=== PATIENT | female | born 1995 | race Hispanic/Latino ===

== ENCOUNTER 2017-09-09 12:55 | Inpatient (IN) | payer MEDICAID ==
[~2017-09-09] VITALS: Ht 162.6 cm; Wt 106.1 kg
[2017-09-09] MEDS ORDERED: LACTATED RINGERS 1000ML 1,000 ML IV PRN (13:43)
[2017-09-09] MEDS ORDERED: OXYTOCIN-LR 20 UNITS/1000 ML 1,000 ML IV SCH (13:45)
[2017-09-09] MEDS ORDERED: DINOPROSTONE 10 MG VAGINAL SUPP VG SCH (13:45)
[2017-09-09 14:06] LABS: HEMATOCRIT 40.5 % (36-48); MEAN CORPUSCULAR HEMOGLOBIN 32.7 pg (27.0-33.0); MEAN CORPUSCULAR HGB CONC 33.9 g/dL (32.0-36.0); MEAN CORPUSCULAR VOLUME 96.3 fL (79-99); PLATELET COUNT (AUTO) 205 K/uL (130-400); RED CELL DISTRIBUTION WIDTH 13.4 % (11.0-15.5); WHITE BLOOD COUNT (AUTO) 13.8 K/uL (4.8-10.8)
[2017-09-09 14:12] LABS: APPEARANCE,URINE Clear (CLEAR); BILIRUBIN,URINE Negative (NEGATIVE); COLOR,URINE Yellow (YELLOW); GLUCOSE, URINE (UA) Negative (NEGATIVE); KETONES,URINE Negative (NEGATIVE); LEUKOCYTE ESTERASE ,URINE Large (NEGATIVE); NITRATE,URINE Positive (NEGATIVE); OCCULT BLOOD,URINE Trace (NEGATIVE); PROTEIN,URINE Negative (NEGATIVE); UROBILINOGEN,URINE 0.2 mg/dL (0.2-1.0)
[2017-09-09 14:29] LABS: BACTERIA,URINE Few /HPF (None Seen); SQUAMOUS EPITHELIAL CELL,UR Few /LPF (0-2)
[2017-09-09] MEDS: AMPICILLIN 2GM+NS 100ML 100 ML IV SCH (22:09)
[2017-09-10] MEDS ORDERED: OXYTOCIN 10 USP UNITS/ML 20 UNIT in LACTATED RINGERS 1000ML 1,000 ML IV SCH (01:00)
[2017-09-10] MEDS: AMPICILLIN 2GM+NS 100ML 100 ML IV SCH ×2 (03:25→21:40)
[2017-09-10] MEDS ORDERED: LACTATED RINGERS 1000ML 1,000 ML IV ONE (03:27)
[2017-09-10] MEDS ORDERED: OXYTOCIN 10 USP UNITS/ML ONE ×2 (03:27→16:17)
[2017-09-10] MEDS ORDERED: PROMETHAZINE HCL 25 MG/ML 1ML AMPULE IM SCH (07:57)
[2017-09-10] MEDS ORDERED: MEPERIDINE-PF 50 MG/ML SYG IVP SCH (07:57)
[2017-09-10] MEDS ORDERED: EPHEDRINE SULFATE 50 MG/ML AMPULE IVP PRN (09:45)
[2017-09-10] MEDS ORDERED: LACTATED RINGERS 500 ML 500 ML IV PRN (09:45)
[2017-09-10] MEDS ORDERED: NALOXONE HCL 0.4 MG/1 ML ML IV PRN (09:45)
[2017-09-10 10:25] LABS: HEPATITIS Bs ANTIGEN SCREEN P Negative (Negative)
[2017-09-10] MEDS ORDERED: EPHEDRINE-NS PF 50MG/5ML SYRINGE IV ONE (11:09)
[2017-09-10] MEDS ORDERED: LIDOCAINE HCL 1% 20 ML VIAL ONE (13:26)
[2017-09-10] MEDS ORDERED: MEASLES/MUMPS/RUBELLA VACCINE, LIVE 0.5 ML/VIAL SQ PRN (14:45)
[2017-09-10] MEDS ORDERED: ACETAMINOPHEN-CODEINE 300/30MG TAB PO PRN (14:45)
[2017-09-10] MEDS ORDERED: ACETAMINOPHEN 325 MG TAB PO PRN (14:45)
[2017-09-10] MEDS ORDERED: BENZOCAINE/LANOLIN/ALOE VERA 60 ML AEROSOL TP PRN (14:45)
[2017-09-10] MEDS ORDERED: DIPH,PERTUSS(ACELL),TET VAC/PF 0.5 ML VIAL IM PRN (14:45)
[2017-09-10] MEDS ORDERED: LANOLIN 30GM OINTMENT TP PRN (14:45)
[2017-09-10] MEDS ORDERED: WITCH HAZEL 1 PAD TP PRN (14:45)
[2017-09-10] MEDS: IBUPROFEN 800 MG TAB PO PRN (16:22)
[2017-09-10 20:00] VITALS: BP 112/59
[2017-09-10] MEDS: DOCUSATE SODIUM 100 MG CAP PO SCH (20:41)
[2017-09-10 21:50] VITALS: BP 102/60
[2017-09-10] MEDS ORDERED: PREN1TAB89 PO (21:59)
[2017-09-10] MEDS ORDERED: FLU VACC QS2017-18 36MOS UP/PF 60 MCG/0.5 ML ML IM ONE (22:30)
[2017-09-10 23:23] VITALS: BP 106/57
[2017-09-11] MEDS ORDERED: FLU VACC QS2017-18 36MOS UP/PF 60 MCG/0.5 ML ML IM ONE (00:06)
[2017-09-11 03:17] VITALS: BP 100/54
[2017-09-11] MEDS: AMPICILLIN 2GM+NS 100ML 100 ML IV SCH (03:32)
[2017-09-11] MEDS: IBUPROFEN 800 MG TAB PO PRN ×2 (03:32→14:11)
[2017-09-11 05:40] LABS: HEMATOCRIT 24.2 % (36-48); MEAN CORPUSCULAR HEMOGLOBIN 33.6 pg (27.0-33.0); MEAN CORPUSCULAR HGB CONC 35.1 g/dL (32.0-36.0); MEAN CORPUSCULAR VOLUME 95.7 fL (79-99); PLATELET COUNT (AUTO) 155 K/uL (130-400); RED BLOOD CELL COUNT(AUTO) 2.53 MIL/uL (4.00-5.50); RED CELL DISTRIBUTION WIDTH 13.3 % (11.0-15.5); WHITE BLOOD COUNT (AUTO) 17.6 K/uL (4.8-10.8)
[2017-09-11 07:54] VITALS: BP 113/66
[2017-09-11] MEDS: DOCUSATE SODIUM 100 MG CAP PO SCH (08:45)
[2017-09-11 11:17] VITALS: BP 117/65
[2017-09-11 15:36] VITALS: BP 108/65
[2017-09-11] MEDS ORDERED: FERS325 PO (16:45)
[2017-09-11] MEDS ORDERED: IBUP-2070 PO (16:45)
== END 2017-09-11 17:45 | disposition home or self-care (01) | DRG 560 ==
LOC: WSH 12:55 → LDH 12:55 → WSH 09-10 21:45
PROVIDERS: ADMIT Obstetrics & Gynecology; ATTEND Obstetrics & Gynecology
PROC: 10E0XZZ Delivery of Products of Conception, External Approach (ICD-10-PCS; principal; 2017-09-10)
PROC: 10907ZC Drainage of Amniotic Fluid, Therapeutic from Products of Conception, Via Natural or Artificial Opening (ICD-10-PCS; 2017-09-10)
PROC: 3E033VJ Introduction of Other Hormone into Peripheral Vein, Percutaneous Approach (ICD-10-PCS; 2017-09-10)
PROC: 3E0P7VZ Introduction of Hormone into Female Reproductive, Via Natural or Artificial Opening (ICD-10-PCS; 2017-09-10)
PROC: 0W8NXZZ Division of Female Perineum, External Approach (ICD-10-PCS; 2017-09-10)
PROC: 00HU33Z Insertion of Infusion Device into Spinal Canal, Percutaneous Approach (ICD-10-PCS; 2017-09-10)
PROC: 3E0R3BZ Introduction of Anesthetic Agent into Spinal Canal, Percutaneous Approach (ICD-10-PCS; 2017-09-10)
PROC: 3E0234Z Introduction of Serum, Toxoid and Vaccine into Muscle, Percutaneous Approach (ICD-10-PCS; 2017-09-10)
PROC: 3E0234Z Introduction of Serum, Toxoid and Vaccine into Muscle, Percutaneous Approach (ICD-10-PCS; 2017-09-11)
DX: O69.81X0 Labor and delivery complicated by cord around neck, without compression, not applicable or unspecified (principal); Z68.41 Body mass index [BMI] 40.0-44.9, adult; O34.219 Maternal care for unspecified type scar from previous cesarean delivery; D64.9 Anemia, unspecified; N85.8 Other specified noninflammatory disorders of uterus; R63.5 Abnormal weight gain; O75.89 Other specified complications of labor and delivery; O90.81 Anemia of the puerperium; Z37.0 Single live birth; Z3A.37 37 weeks gestation of pregnancy; Z23 Encounter for immunization
CPT/HCPCS: 36415; 76805; 81001; 85027; 86592; 86850; 86900; 86901; 87088; 87340; 90715; A4314; A4351; A4606; J0290; J2175; J2550; J2590; J3490; J7120; Q2038

== ENCOUNTER 2019-12-06 17:46 | Inpatient (IN) | payer MEDICAID ==
[~2019-12-06] VITALS: Ht 165.1 cm; Wt 118.8 kg
[~2019-12-06 17:46] MED LIST: FERS325 PO; IBUP-2070 PO; PREN1TAB89 PO
[2019-12-06 18:42] LABS: HEMATOCRIT 41.6 % (36-48); MEAN CORPUSCULAR HGB CONC 33.2 g/dL (32.0-36.0); MEAN CORPUSCULAR VOLUME 93.5 fL (79-99); PLATELET COUNT (AUTO) 215 K/uL (130-400); RED BLOOD CELL COUNT(AUTO) 4.45 MIL/uL (4.00-5.50); RED CELL DISTRIBUTION WIDTH 13.2 % (11.0-15.5); WHITE BLOOD COUNT (AUTO) 11.9 K/uL (4.8-10.8)
[2019-12-06 18:44] LABS: BILIRUBIN,URINE Negative (NEGATIVE); COLOR,URINE Yellow (YELLOW); GLUCOSE, URINE (UA) Negative (NEGATIVE); KETONES,URINE Negative (NEGATIVE); LEUKOCYTE ESTERASE ,URINE Negative (NEGATIVE); NITRATE,URINE Negative (NEGATIVE); OCCULT BLOOD,URINE Negative (NEGATIVE); PH,URINE 7.5 (5.0-8.0); PROTEIN,URINE Negative (NEGATIVE)
[2019-12-06 18:49] LABS: APPEARANCE,URINE SLIGHTLY CLOUDY (CLEAR)
[2019-12-06 18:56] LABS: RBC,URINE 0-1 /HPF (0-1); WBC,URINE 0-1 /HPF (0-1)
[2019-12-06 18:58] LABS: AMORPHOUS SEDIMENT,UR Few /LPF (None Seen); BACTERIA,URINE Few /HPF (None Seen); SQUAMOUS EPITHELIAL CELL,UR Few /HPF (0-2)
[2019-12-06] MEDS ORDERED: MISOPROSTOL 25 MCG TABLET VG SCH (19:55)
[2019-12-06 20:00] VITALS: BP 112/65
[2019-12-06] MEDS: LACTATED RINGERS 1000ML 1,000 ML IV PRN (20:15)
[2019-12-06] MEDS ORDERED: PREN1TAB80 PO (20:32)
[2019-12-07] VITALS (8 sets, daily range): BP systolic 94–125; BP diastolic 49–74
[2019-12-07] MEDS: LACTATED RINGERS 1000ML 1,000 ML IV PRN (01:26)
[2019-12-07] MEDS ORDERED: OXYTOCIN-LR 20 UNITS/1000 ML 1,000 ML IV ONE (03:57)
[2019-12-07] MEDS ORDERED: PROMETHAZINE HCL 25 MG/ML 1ML AMPULE IM SCH (09:15)
[2019-12-07] MEDS ORDERED: MEPERIDINE-PF 50 MG/ML SYG IVP SCH (09:15)
[2019-12-07] MEDS ORDERED: MEPERIDINE-PF 50 MG/ML SYG ONE (09:19)
[2019-12-07] MEDS ORDERED: LIDOCAINE HCL 1% 20 ML VIAL ONE (10:47)
[2019-12-07] MEDS ORDERED: WITCH HAZEL 1 PAD TP PRN (11:00)
[2019-12-07] MEDS ORDERED: MEASLES/MUMPS/RUBELLA VACCINE, LIVE 0.5 ML/VIAL SQ PRN (11:00)
[2019-12-07] MEDS ORDERED: BENZOCAINE/LANOLIN/ALOE VERA 60 ML AEROSOL TP PRN (11:00)
[2019-12-07] MEDS ORDERED: DIPH,PERTUSS(ACELL),TET VAC/PF 0.5 ML VIAL IM PRN (11:00)
[2019-12-07] MEDS ORDERED: ACETAMINOPHEN-CODEINE 300/30MG TAB PO PRN (11:00)
[2019-12-07] MEDS ORDERED: LANOLIN 30GM OINTMENT TP PRN (11:00)
--- NOTE | 2019-12-07 12:50 | NUR ---
QBL= 149G 2 HOURS . PERICARE GIVEN AT THIS TIME.
[2019-12-07] MEDS: IBUPROFEN 600 MG TABLET PO PRN (12:59)
[2019-12-07] MEDS: OXYTOCIN-LR 20 UNITS/1000 ML 1,000 ML IV SCH (14:54)
[2019-12-07] MEDS: ACETAMINOPHEN 325 MG TAB PO PRN (17:12)
[2019-12-07] MEDS ORDERED: FLU VACC QS2019-20 36MOS UP/PF 60 MCG/0.5 ML ML IM ONE (18:00)
[2019-12-07] MEDS: DOCUSATE SODIUM 100 MG CAP PO SCH (21:00)
[2019-12-08 03:35] VITALS: BP 102/51
[2019-12-08] MEDS: OXYTOCIN-LR 20 UNITS/1000 ML 1,000 ML IV SCH (04:00)
[2019-12-08] MEDS: IBUPROFEN 600 MG TABLET PO PRN (05:13)
[2019-12-08 05:20] LABS: HEMATOCRIT 36.9 % (36-48); MEAN CORPUSCULAR HGB CONC 32.5 g/dL (32.0-36.0); MEAN CORPUSCULAR VOLUME 95.3 fL (79-99); PLATELET COUNT (AUTO) 184 K/uL (130-400); RED BLOOD CELL COUNT(AUTO) 3.87 MIL/uL (4.00-5.50); RED CELL DISTRIBUTION WIDTH 13.4 % (11.0-15.5); WHITE BLOOD COUNT (AUTO) 15.6 K/uL (4.8-10.8)
[2019-12-08 07:11] LABS: HEPATITIS Bs ANTIGEN SCREEN P Negative (Negative)
[2019-12-08 07:29] VITALS: BP 106/57
[2019-12-08] MEDS: DOCUSATE SODIUM 100 MG CAP PO SCH (09:05)
[2019-12-08] MEDS: ACETAMINOPHEN 325 MG TAB PO PRN (09:05)
[2019-12-08 11:28] VITALS: BP 107/68
--- NOTE | 2019-12-08 13:10 | NUR ---
DISCHARGE INSTRUCTIONS READ AND EXPLAINED TO PATIENT. NO RX WRITTEN. COVID 19 INFORMATION GIVEN TO PATIENT. QUESTIONS INVITED AND ANSWERED. PT VOICED UNDERSTANDING ON ALL INFORMATION.
--- NOTE | 2019-12-08 13:25 | NUR ---
PATIENT LEFT UNIT VIA WHEELCHAIR WITH BABY IN ARMS. PERSONAL VEHICLE USED FOR TRANSPORTATION ACCOMPANIED BY SIGNIFICANT OTHER. NO COMPLAINTS OR CONCERNS ADDRESSED FROM PATIENT ON DISCHARGE.
== END 2019-12-08 13:25 | disposition home or self-care (01) | DRG 560 ==
LOC: LDH 17:46 → OBSVTOIN 17:46 → WSH 12-07 11:10
PROVIDERS: ADMIT Obstetrics & Gynecology; ATTEND Obstetrics & Gynecology
PROC: 10E0XZZ Delivery of Products of Conception, External Approach (ICD-10-PCS; principal; 2019-12-07)
PROC: 0W8NXZZ Division of Female Perineum, External Approach (ICD-10-PCS; 2019-12-07)
PROC: 3E0234Z Introduction of Serum, Toxoid and Vaccine into Muscle, Percutaneous Approach (ICD-10-PCS; 2019-12-07)
PROC: 3E0134Z Introduction of Serum, Toxoid and Vaccine into Subcutaneous Tissue, Percutaneous Approach (ICD-10-PCS; 2019-12-07)
PROC: 3E02340 Introduction of Influenza Vaccine into Muscle, Percutaneous Approach (ICD-10-PCS; 2019-12-07)
DX: O80 Encounter for full-term uncomplicated delivery (principal); Z37.0 Single live birth; Z23 Encounter for immunization; Z3A.39 39 weeks gestation of pregnancy
CPT/HCPCS: 36415; 76805; 81001; 85027; 86592; 86850; 86900; 86901; 87340; 90715; A4351; A4606; G0378; J2175; J2590; J7120

== ENCOUNTER 2024-03-19 06:20 | Day surgery (SDC) | payer MEDICAID ==
[2024-03-18 12:35] VITALS: BP 123/69; PULSE 57; RESP 19
[2024-03-18 12:44] LABS: BASOPHILS # (AUTO) 0.01 K/uL (0.00-0.20); BASOPHILS % (AUTO) 0.2 % (0.0-5.0); EOSINOPHILS # (AUTO) 0.11 K/uL (0.00-0.70); EOSINOPHILS % (AUTO) 1.8 % (0.0-8.0); HEMATOCRIT 38.5 % (36-48); IMMATURE GRANULOCYTE ABSOLUTE 0.01 K/uL (0-1); LYMPHOCYTES # (AUTO) 2.6 K/uL (1.0-4.8); LYMPHOCYTES % (AUTO) 42.1 % (21.0-51.0); MEAN CORPUSCULAR HEMOGLOBIN 28.3 pg (27.0-33.0); MEAN CORPUSCULAR HGB CONC 32.2 g/dL (32.0-36.0); MEAN CORPUSCULAR VOLUME 87.9 fL (79-99); MONOCYTES # (AUTO) 0.5 K/uL (0.1-1.0); MONOCYTES % (AUTO) 7.5 % (3.0-13.0); NEUTROPHILS % (AUTO) 48.2 % (40.0-77.0); PLATELET COUNT (AUTO) 268 K/uL (130-400); RED BLOOD CELL COUNT(AUTO) 4.38 MIL/uL (4.00-5.50); RED CELL DISTRIBUTION WIDTH 14.6 % (11.0-15.5); WHITE BLOOD COUNT (AUTO) 6.2 K/uL (4.8-10.8)
[~2024-03-19] VITALS: Ht 165.1 cm; Wt 126.3 kg
[2024-03-19] VITALS (14 sets, daily range): BP systolic 112–129; BP diastolic 62–76; PULSE 47–65; RESP 16–19
[~2024-03-19 06:20] MED LIST changes: -FERS325 PO; -IBUP-2070 PO; +PREN1TAB80 PO; -PREN1TAB89 PO
[2024-03-19] MEDS ORDERED: CEFAZOLIN SODIUM 1 GM VIAL ONE (06:26)
[2024-03-19] MEDS ORDERED: LACTATED RINGERS 1000ML 1,000 ML IV ONE (06:26)
[2024-03-19] MEDS ORDERED: CEFAZOLIN SODIUM 2 GM VIAL ONE (06:26)
[2024-03-19] MEDS ORDERED: ONDANSETRON 4MG INJ ONE (07:13)
[2024-03-19] MEDS ORDERED: MIDAZOLAM HCL 1 MG/ML 2ML VIAL ONE (07:13)
[2024-03-19] MEDS ORDERED: ROCURONIUM BROMIDE 10MG/1ML 5ML VL ONE (07:14)
[2024-03-19] MEDS ORDERED: SUCCINYLCHOLINE CHLORIDE 20 MG/ML 10 ML VIAL ONE (07:14)
[2024-03-19] MEDS ORDERED: PROPOFOL 10 MG/ML 20ML VIAL IV ONE ×3 (07:14→09:36)
[2024-03-19] MEDS ORDERED: FENTANYL CITRATE PF 50 MCG/1 ML 2ML VIAL ONE ×2 (07:15→08:35)
[2024-03-19] MEDS: CEFAZOLIN SODIUM 3 GM VIAL IVPB ONE (07:55)
[2024-03-19] MEDS ORDERED: DEXAMETHASONE SOD PHOSPHATE 10MG/ML 1ML VIAL ONE (08:07)
[2024-03-19] MEDS: BUPIVACAINE/PF 0.25% 30ML VIAL IJ ONE (08:16)
[2024-03-19] MEDS ORDERED: NEOSTIGMINE METHYLSULFATE 1MG/ML IV ONE (08:33)
[2024-03-19] MEDS ORDERED: GLYCOPYRROLATE 0.2 MG/ML 5 ML VIAL ONE ×2 (08:33→09:03)
[2024-03-19] MEDS ORDERED: KETOROLAC 30MG VIAL (30MG/ML) ONE (08:35)
[2024-03-19] MEDS: ACETAMINOPHEN 1,000 MG/100 ML VIAL IV ONE (09:29)
== END 2024-03-19 10:21 | disposition home or self-care (01) ==
LOC: DAH 06:20
PROVIDERS: ATTEND Obstetrics & Gynecology
DX: Z30.2 Encounter for sterilization (principal); Z64.1 Problems related to multiparity; E66.01 Morbid (severe) obesity due to excess calories
CPT/HCPCS: 84703; 85025; 86850; 86900; 86901; 36415; 58670; A6260; A4510; A4600; A4663; A4351; A4606; J0690 ×3; J7120; J3010 ×2; J1100; J0330; J0665; J3490 ×5; J2250; J2405; J1885; J2710; C1769 ×4; G0168; A4649; A4215 ×2; A4223; A4213; A4222; A4221; J2704